=== PATIENT | female | born 1950 | race Caucasian/White ===

== ENCOUNTER 2020-03-12 18:18 | Emergency (ER) | payer MEDICARE ==
[~2020-03-12 18:18] MED LIST: ALBUTEROL0.63 MG/3 INH; ALLEGRA ALLERG180 MG PO; ALLER-EASE180 MG PO; ALTOPREV40 MG PO; ANORO ELLIPTA1 EACH INH; ARIMIDEX1 MG PO; BENADRYL 25MG C25 MG PO; BENADRYL25 MG PO; BREO ELLIPTA 11 EACH INH; CALCIUM 600 +1 EA10 PO; CALCIUM 600 +1 EAC8 PO; CALCIUM500 MG PO; CALCIUM600 MG PO; CELEBREX 200MG200 MG PO; CELEBREX200 MG PO; CELEXA40 MG PO; CITALOPRAM HBR40 MG PO; CLEOCIN HCL300 MG PO; COLACE100 MG PO; DUREZOL5 ML EYERT; EFFEXOR XR150 MG PO; EFFEXOR XR75 MG PO; ELAVIL 25 MG TA25 MG PO; ELIQUIS 2.5 MG2.5 MG PO; ELIQUIS5 MG PO; ELLIPTA INH; FERROUS SULFAT325 M2 PO; FERROUS SULFAT325 MG PO; FOLIC ACID; FOLIC ACID 1 MG1 MG PO; FOLIC ACID1 MG PO; FOSAMAX70 MG PO; GABAPENTIN800 MG PO; GINGER PO; HAIR, SKIN & N1 EACH PO; IBUPROFEN800 MG PO; INDERAL TAB 4040 MG PO; IRON325 M1 PO; K-DUR TAB 20 M20 MEQ PO; KEFLEX CAP 500500 MG PO; KEFLEX500 MG PO; KEPPRA750 MG PO; LEVETIRACETAM750 MG PO; LORCET PLUS 7.1 EACH PO; LOVASTATIN10 MG PO; LOVENOX SY40 MG/0.4 SQ; MEGA BIOTIN10000 MCG PO; METHOTREXATE T2.5 MG PO; METHOTREXATE2.5 MG PO; MIRALAX17 GM PO; NEURONTIN 100100 MG PO; NEURONTIN 300300 MG PO; NEURONTIN400 MG PO; NEURONTIN600 MG PO; NORCO 5-325 TA1 EACH PO; NORCO 7.5-3251 EACH PO; OMEPRAZOLE20 MG PO; OMNICEF 300 MG300 MG PO; OXYBUTYNIN CHLOR5 MG PO; PERCOCET 5/325 T1 EA PO; PHOS-NAK PACKET1 EA PO; PRAVASTATIN SOD40 MG PO; PREDNISONE10 MG PO; PREDNISONE5 MG PO; PRENATAL; PRILOSEC OTC20 MG PO; PROTONIX40 MG PO; PROVENTIL HFA6.7 GM INH; REGLAN10 MG PO; SENNA-DOCUSATE1 EACH PO; SENOKOT-S TABL1 EACH PO; SINGULAIR10 MG PO; SYMPROIC PO; SYNTHROID25 MCG PO; TUMERIC/CURCUMIN PO; TURMERIC PO; VENLAFAXINE HCL75 MG PO; VITAMIN C 500500 MG PO; VITAMIN C500 M1 PO; VITAMIN D250000 UNIT PO; VITAMIN D350 MC2 PO; VITAMIN D350000 UNIT PO; VITAMIN E400 UNI2 PO; VOLTAREN EC 5050 MG PO; ZANAFLEX2 MG PO; ZANAFLEX4 MG PO; ZANTAC300 MG PO; ZYRTEC10 MG PO
[2020-03-12 20:13] LABS: HEMOGLOBIN 15.6 gm/dl (12.3-15.3); RED BLOOD COUNT 5.5 M/UL (4.00-5.10); WHITE BLOOD COUNT 6.8 K/UL (4.5-11.0)
[2020-03-12 20:34] LABS: BUN/CREATININE RATIO 17 (0-10)
[2020-03-12] MEDS ORDERED: DECADRON6 MG PO (21:48)
[2020-03-12] MEDS ORDERED: DOXYCYCLINE HY100 MG PO (21:48)
[2020-04-20] MEDS ORDERED: ALLEGRA PO (09:50)
[2020-04-20] MEDS ORDERED: [UNRECOGNIZED DRUG - OTHER] PO (09:52)
[2020-04-20] MEDS ORDERED: NORCO PO (09:52)
[2020-04-20] MEDS ORDERED: HAIR VITAMIN1 EACH PO (09:53)
[2020-04-20] MEDS ORDERED: CALCIUM PO (09:53)
[2020-04-20] MEDS ORDERED: PROTONIX PO (10:01)
[2020-04-20] MEDS ORDERED: METHOTREXATE PO (10:02)
== END 2020-03-12 22:00 | disposition home or self-care (01) ==
LOC: ER1 18:18
PROVIDERS: Emergency Medicine
DX: U07.1 COVID-19 (principal); J02.0 Streptococcal pharyngitis; Z88.1 Allergy status to other antibiotic agents; Z88.2 Allergy status to sulfonamides; Z88.5 Allergy status to narcotic agent
CPT/HCPCS: 36600; 71045; 80053; 82550; 82553; 82803; 83605; 83690; 83735; 83874; 83880; 84100; 84484; 85025; 85610; 85730; 87040; 93005; 96374; 99285; J1100; J2405

== ENCOUNTER → 2020-03-30 | Outpatient (CLI) | payer MEDICARE ==
[~2020-03-30] MED LIST changes: +ALLEGRA PO; +CALCIUM PO; +DECADRON6 MG PO; +DOXYCYCLINE HY100 MG PO; +HAIR VITAMIN1 EACH PO; +METHOTREXATE PO; +NORCO PO; +PROTONIX PO; +[UNRECOGNIZED DRUG - OTHER] PO
== END ==
LOC: KOH-I 14:19
DX: M79.671 Pain in right foot (principal); J20.9 Acute bronchitis, unspecified; R05 Cough; R91.8 Other nonspecific abnormal finding of lung field
CPT/HCPCS: 71250; 73630

== ENCOUNTER → 2020-04-19 | Outpatient (CLI) | payer MEDICARE | LOC: NM 09:50 | DX: D38.1 Neoplasm of uncertain behavior of trachea, bronchus and lung (principal); R91.8 Other nonspecific abnormal finding of lung field; R94.8 Abnormal results of function studies of other organs and systems | CPT/HCPCS: 78306; A9503 ==

== ENCOUNTER → 2020-04-20 | Outpatient (CLI) | payer MEDICARE ==
[2020-04-20 09:13] LABS: HEMOGLOBIN 13.9 gm/dl (12.3-15.3); RED BLOOD COUNT 4.83 M/UL (4.00-5.10); WHITE BLOOD COUNT 9.2 K/UL (4.5-11.0)
== END ==
LOC: CT 04-13 08:00
PROVIDERS: Radiology Diagnostic Radiology
PROC: 0PB13ZX Excision of 1 to 2 Ribs, Percutaneous Approach, Diagnostic (ICD-10-PCS; principal; 2020-04-20)
DX: C41.3 Malignant neoplasm of ribs, sternum and clavicle (principal); J45.909 Unspecified asthma, uncomplicated; M19.90 Unspecified osteoarthritis, unspecified site; G89.29 Other chronic pain; M54.9 Dorsalgia, unspecified; H26.9 Unspecified cataract; Z79.1 Long term (current) use of non-steroidal anti-inflammatories (NSAID); Z79.899 Other long term (current) drug therapy; Z88.1 Allergy status to other antibiotic agents; Z88.2 Allergy status to sulfonamides; Z88.5 Allergy status to narcotic agent; Z91.048 Other nonmedicinal substance allergy status; Z85.3 Personal history of malignant neoplasm of breast; Z90.11 Acquired absence of right breast and nipple; Z92.21 Personal history of antineoplastic chemotherapy; Z92.3 Personal history of irradiation; Z86.16 Personal history of COVID-19
CPT/HCPCS: 36415; 77012; 85027; 85610; 88172

== ENCOUNTER → 2020-05-11 | Outpatient (CLI) | payer MEDICARE ==
[2020-05-11 09:44] LABS: HEMOGLOBIN 13.3 gm/dl (12.3-15.3); RED BLOOD COUNT 4.66 M/UL (4.00-5.10); WHITE BLOOD COUNT 6.7 K/UL (4.5-11.0)
== END ==
LOC: CT 08:42
PROVIDERS: Internal Medicine Hematology & Oncology
PROC: 0PB13ZX Excision of 1 to 2 Ribs, Percutaneous Approach, Diagnostic (ICD-10-PCS; principal; 2020-05-11)
DX: C79.51 Secondary malignant neoplasm of bone (principal); C80.1 Malignant (primary) neoplasm, unspecified; Z17.0 Estrogen receptor positive status [ER+]; Z88.1 Allergy status to other antibiotic agents; Z88.2 Allergy status to sulfonamides; Z88.5 Allergy status to narcotic agent; Z91.048 Other nonmedicinal substance allergy status; Z79.1 Long term (current) use of non-steroidal anti-inflammatories (NSAID); Z79.899 Other long term (current) drug therapy; Z20.822 Contact with and (suspected) exposure to COVID-19
CPT/HCPCS: 36415; 71045; 85027; 85610; 85730; 88341; 88342; 88360

== ENCOUNTER → 2020-05-14 | Outpatient (CLI) | payer MEDICARE | LOC: MRI 12:53 | DX: D72.829 Elevated white blood cell count, unspecified (principal); R90.89 Other abnormal findings on diagnostic imaging of central nervous system | CPT/HCPCS: 36415; 70553; 82565; A9577 ==

== ENCOUNTER → 2020-06-14 | Outpatient (CLI) | payer MEDICARE | LOC: MRI 06-11 11:00 | DX: C80.1 Malignant (primary) neoplasm, unspecified (principal); C79.51 Secondary malignant neoplasm of bone; D72.829 Elevated white blood cell count, unspecified; Z85.3 Personal history of malignant neoplasm of breast | CPT/HCPCS: 72157; A9577 ==

== ENCOUNTER → 2020-07-19 | Outpatient (CLI) | payer MEDICARE | LOC: EXRD 08:09 | DX: Z00.00 Encounter for general adult medical examination without abnormal findings (principal); C79.51 Secondary malignant neoplasm of bone; Z85.3 Personal history of malignant neoplasm of breast; Z98.890 Other specified postprocedural states | CPT/HCPCS: 71046 ==

== ENCOUNTER → 2020-11-15 | Outpatient (CLI) | payer MEDICARE ==
[~2020-11-15] MED LIST changes: +ASPIRIN EC81 MG PO; +AUGMENTIN 875-1 EACH PO; +CARAFATE1 GM PO; +CYANOCOBAL1000 MCG/1 INJ; +FEOSOL325 MG PO; +IMITREX25 MG PO; +KEPPRA 500 MG500 MG PO; -METHOTREXATE PO; +NEURONTIN300 MG PO; +PROTONIX 40 MG40 M1 PO; +VISTARIL 25 MG25 MG PO; +VITAMIN C1000 MG PO; -VITAMIN C500 M1 PO; +VITAMIN E400 UNI1 PO
== END ==
LOC: NM 08:10
DX: C80.1 Malignant (primary) neoplasm, unspecified (principal); D72.829 Elevated white blood cell count, unspecified; C79.51 Secondary malignant neoplasm of bone; Z85.3 Personal history of malignant neoplasm of breast
CPT/HCPCS: 78306; A9503

== ENCOUNTER 2021-01-15 13:12 | Observation (INO) | payer MEDICARE ==
[~2021-01-15] VITALS: Ht 172.7 cm; Wt 86.2 kg
[2021-01-15 13:33] LABS: RED BLOOD COUNT 4.37 M/UL (4.00-5.10); WHITE BLOOD COUNT 5.6 K/UL (4.5-11.0)
[2021-01-15 14:00] LABS: BUN/CREATININE RATIO 13 (0-10)
[2021-01-16] MEDS ORDERED: ASPIRIN81 MG PO (00:31)
[2021-01-16] MEDS ORDERED: TIZANIDINE HCL4 MG PO (00:35)
[2021-01-16] MEDS ORDERED: CYMBALTA60 MG PO (00:35)
[2021-01-16] MEDS ORDERED: MELATONIN5 M2 PO (00:36)
[2021-01-16] MEDS ORDERED: DITROPAN 5 MG TA5 MG PO (00:36)
[2021-01-16] MEDS ORDERED: HYDROCODONE-AC1 EAC1 PO (00:36)
[2021-01-16] MEDS ORDERED: FASLODEX IM (00:38)
[2021-01-16 02:04] LABS: HEMOGLOBIN 12.5 gm/dl (12.3-15.3); RED BLOOD COUNT 4.63 M/UL (4.00-5.10)
[2021-01-16 02:05] LABS: WHITE BLOOD COUNT 7.5 K/UL (4.5-11.0)
[2021-01-16 02:40] LABS: BUN/CREATININE RATIO 16 (0-10)
[2021-01-17 06:25] LABS: HEMOGLOBIN 12.2 gm/dl (12.3-15.3); RED BLOOD COUNT 4.42 M/UL (4.00-5.10); WHITE BLOOD COUNT 6.2 K/UL (4.5-11.0)
[2021-01-17 06:34] LABS: BUN/CREATININE RATIO 11 (0-10)
[2021-01-17] MEDS ORDERED: CRESTOR20 MG PO (09:24)
[2021-01-17] MEDS ORDERED: CEFDINIR300 MG PO (09:25)
== END 2021-01-17 12:49 | disposition home or self-care (01) ==
LOC: ER1 13:12 → MED SURG 4 20:42 → CDU 20:42 → MED SURG 4 01-16 00:15
PROVIDERS: Internal Medicine; Student in an Organized Health Care Education/Training Program; ADMIT Internal Medicine
DX: R55 Syncope and collapse (principal); R53.1 Weakness; G40.909 Epilepsy, unspecified, not intractable, without status epilepticus; J45.909 Unspecified asthma, uncomplicated; M19.90 Unspecified osteoarthritis, unspecified site; Z20.822 Contact with and (suspected) exposure to COVID-19; Z85.3 Personal history of malignant neoplasm of breast; Z92.21 Personal history of antineoplastic chemotherapy; Z92.3 Personal history of irradiation; Z86.73 Personal history of transient ischemic attack (TIA), and cerebral infarction without residual deficits; Z85.830 Personal history of malignant neoplasm of bone; Z88.1 Allergy status to other antibiotic agents; Z88.2 Allergy status to sulfonamides; Z88.5 Allergy status to narcotic agent; Z91.048 Other nonmedicinal substance allergy status; Z86.79 Personal history of other diseases of the circulatory system; Z79.890 Hormone replacement therapy; Z79.82 Long term (current) use of aspirin; Z79.899 Other long term (current) drug therapy
CPT/HCPCS: 36415; 70450; 71045; 73030; 80048; 80053; 81001; 82550; 82553; 83735; 83874; 84484; 85025; 85379; 85610; 87086; 93005; 99285; G0378; J0696; J1650; J7030; Q9967; U0002

== ENCOUNTER → 2021-02-10 | Outpatient (CLI) | payer MEDICARE ==
[~2021-02-10] MED LIST changes: +ASPIRIN81 MG PO; +CEFDINIR300 MG PO; +CRESTOR20 MG PO; +CYMBALTA60 MG PO; +DITROPAN 5 MG TA5 MG PO; +FASLODEX IM; +HYDROCODONE-AC1 EAC1 PO; +MELATONIN5 M2 PO; +TIZANIDINE HCL4 MG PO
== END ==
LOC: KOH-I 16:40
DX: J20.9 Acute bronchitis, unspecified (principal); R06.02 Shortness of breath; R06.2 Wheezing; R05.9 Cough, unspecified; R91.8 Other nonspecific abnormal finding of lung field
CPT/HCPCS: 71046

== ENCOUNTER → 2021-03-03 | Outpatient (CLI) | payer MEDICARE | LOC: CT 09:34 | DX: D38.1 Neoplasm of uncertain behavior of trachea, bronchus and lung (principal); R91.8 Other nonspecific abnormal finding of lung field | CPT/HCPCS: 71270; Q9967 ==

== ENCOUNTER 2021-04-13 10:39 | Emergency (ER) | payer MEDICARE, OTHER ==
[2021-04-13 12:30] LABS: HEMOGLOBIN 12.6 gm/dl (12.3-15.3); RED BLOOD COUNT 4.8 M/UL (4.00-5.10)
[2021-04-13 12:49] LABS: BUN/CREATININE RATIO 14 (0-10)
== END 2021-04-13 21:30 | disposition home or self-care (01) ==
LOC: ER1 10:39
PROVIDERS: Physician Assistant
DX: R42 Dizziness and giddiness (principal); Z90.710 Acquired absence of both cervix and uterus; Z90.49 Acquired absence of other specified parts of digestive tract; Z88.2 Allergy status to sulfonamides; Z88.8 Allergy status to other drugs, medicaments and biological substances
CPT/HCPCS: 70450; 71045; 80053; 81001; 82550; 82553; 83874; 84484; 85025; 93005; 99284

== ENCOUNTER → 2021-05-31 | Outpatient (CLI) | payer OTHER | LOC: NM 08:10 | DX: D72.829 Elevated white blood cell count, unspecified (principal); C80.1 Malignant (primary) neoplasm, unspecified; C79.51 Secondary malignant neoplasm of bone; Z85.3 Personal history of malignant neoplasm of breast | CPT/HCPCS: 78306; A9503 ==

== ENCOUNTER → 2021-05-31 | Outpatient (CLI) | payer OTHER | LOC: EXRD 13:46 | DX: D72.829 Elevated white blood cell count, unspecified (principal); C80.1 Malignant (primary) neoplasm, unspecified; C79.51 Secondary malignant neoplasm of bone; Z85.3 Personal history of malignant neoplasm of breast | CPT/HCPCS: 77080 ==

== ENCOUNTER → 2021-06-09 | Outpatient (CLI) | payer OTHER | LOC: MRI 12:28 | DX: M54.2 Cervicalgia (principal); M47.812 Spondylosis without myelopathy or radiculopathy, cervical region | CPT/HCPCS: 72141 ==

== ENCOUNTER → 2021-06-16 | Outpatient (CLI) | payer OTHER | LOC: CT 07:43 | DX: D72.829 Elevated white blood cell count, unspecified (principal); C80.1 Malignant (primary) neoplasm, unspecified; C79.51 Secondary malignant neoplasm of bone; Z85.3 Personal history of malignant neoplasm of breast | CPT/HCPCS: 71260; 72193; Q9967 ==

== ENCOUNTER → 2021-08-11 | Outpatient (CLI) | payer OTHER | LOC: CT 07-14 15:30 | DX: R51.9 Headache, unspecified (principal) | CPT/HCPCS: 36415; 70470; 82565; 84520; Q9967 ==

== ENCOUNTER → 2021-09-15 | Outpatient (CLI) | payer OTHER | LOC: CT 09-12 11:00 | DX: D72.829 Elevated white blood cell count, unspecified (principal); C80.1 Malignant (primary) neoplasm, unspecified; C79.51 Secondary malignant neoplasm of bone; Z85.3 Personal history of malignant neoplasm of breast | CPT/HCPCS: 71260; Q9967 ==

== ENCOUNTER → 2021-09-26 | Outpatient (CLI) | payer OTHER | LOC: NM 09-15 09:00 | DX: D72.829 Elevated white blood cell count, unspecified (principal); C80.1 Malignant (primary) neoplasm, unspecified; C79.51 Secondary malignant neoplasm of bone; Z85.3 Personal history of malignant neoplasm of breast | CPT/HCPCS: 78306; A9503 ==

== ENCOUNTER → 2021-10-03 | Outpatient (CLI) | payer OTHER | LOC: RAD 12:20 | DX: R94.8 Abnormal results of function studies of other organs and systems (principal); C80.1 Malignant (primary) neoplasm, unspecified; C79.51 Secondary malignant neoplasm of bone; D72.829 Elevated white blood cell count, unspecified; Z85.3 Personal history of malignant neoplasm of breast; Z90.89 Acquired absence of other organs | CPT/HCPCS: 71101 ==

== ENCOUNTER 2021-10-15 20:49 | Emergency (ER) | payer OTHER | END 2021-10-15 22:00 | disposition home or self-care (01) | LOC: ER1 20:49 | DX: S69.91XA Unspecified injury of right wrist, hand and finger(s), initial encounter (principal); J45.909 Unspecified asthma, uncomplicated; Z86.73 Personal history of transient ischemic attack (TIA), and cerebral infarction without residual deficits; Z88.8 Allergy status to other drugs, medicaments and biological substances; Z88.2 Allergy status to sulfonamides; Z88.5 Allergy status to narcotic agent; Z85.3 Personal history of malignant neoplasm of breast; W22.8XXA Striking against or struck by other objects, initial encounter | CPT/HCPCS: 73130; 99283 ==